=== PATIENT | male | born 1960 | race Caucasian/White ===

== ENCOUNTER → 2019-07-11 | Day surgery (SDC) | payer BC ==
[~2019-07-11] MED LIST: IV RINGERS,LACTATED 1000ML 1,000 ML IV SCH; LIDOCAINE 2% PF 5 ML VIAL. ONE; PROPOFOL 20 ML IV ONE; PROPOFOL 80 ML IV ONE
[2019-07-11 17:15] VITALS: BP 158/91
--- NOTE | 2019-07-13 16:06 | PATHOLOGY ---
[facility] Accession Number: [id number] . 01 Material submitted: . PART A: stomach - GASTRIC CARDIA POLYP BX PART B: sigmoid colon - SIGMOID POLYPS PART C: colon - TRANSVERSE COLON POLYP. Modifiers: transverse PART D: rectosigmoid junction - RECTO-SIGMOID JUNCTION MASS BX . 01 Clinical history: . Weight loss, GI bleed, heartburn . 02 Diagnosis: A. Gastric biopsies, gastric cardia polyp: - Hyperplastic polyp, showing mild acute and chronic inflammation. . B. Colon biopsies, sigmoid polyps: - Tubular adenomas (2). . C. Colon biopsy, transverse colon polyp: - Pedunculated tubular adenoma. . D. Colon biopsies, rectosigmoid junction mass: - Adenocarcinoma, moderately-well differentiated, with mucinous features. . (JPM:[facility]; 07/13/2019) [facility] 07/13/2019 1523 Local . 02 Comment: Sections of the gastric cardia biopsy reveal a hyperplastic polyp showing focal mild acute and chronic inflammation. There are no adenomatous changes or evidence of malignancy. . Sections of the sigmoid colon biopsy reveal two tubular adenomas showing no high grade dysplasia or evidence of malignancy. There is also a segment of mucinous material containing small clusters of malignant cells having features of mucinous adenocarcinoma. I believe this most likely represents contamination from the rectosigmoid junction mass. . Sections of the transverse colon biopsy reveal a pedunculated tubular adenoma. There is no high grade dysplasia or evidence of malignancy. . Sections of the rectosigmoid junction mass biopsy focally reveal malignant glands infiltrating a reactive desmoplastic stroma. The malignant glands are focally associated with mucin lakes and there are focal tumor cells floating within mucin lakes. 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 . The case is also examined by Dr. Mack Castro, who concurs with the diagnoses. . (JPM:mml; 07/13/2019) . 02 Electronically signed: . Matthew Garrido MD, Pathologist NPI- [id number] . 01 Gross description: . A. Received in formalin labeled "Martin [place], gastric cardia polyp BX," are 4 segments of nesbitt soft tissue measuring 0.9 x 0.9 x 0.2 cm in aggregate dimensions and ranging from 0.3 to 0.5 cm in maximum dimension. The specimen is submitted entirely in cassette A1. . B. Received in formalin labeled "Martin [place], sigmoid polyps," is a 0.5 x 0.4 x 0.3 cm polypoid piece of nesbitt soft tissue. The margin is inked and the tissue is sectioned perpendicular to the margin and submitted entirely in cassette B1. Additionally received in the same container are 4 segments of nesbitt soft tissue measuring 0.9 x 0.7 x 0.2 cm in aggregate dimensions and ranging from 0.3 to 0.5 cm in maximum dimensions. The specimen is submitted entirely in cassette B2. . C. Received in formalin labeled "Martin Cord[place], transverse colon polyp," is a 1.2 x 1.0 x 0.9 cm polypoid piece of nesbitt soft tissue. The margin is inked and the tissue is sectioned perpendicular to the margin and submitted entirely in cassette C1 and C2. . D. Received in formalin labeled "Martin Cord[place], recto-sigmoid junction mass BX," are multiple segments of nesbitt soft tissue measuring 1.5 x 0.5 x 0.1 cm in aggregate dimensions. The specimen is filtered and entirely submitted in cassette D1. (TSD; 07/12/2019) TOB/TOB 07/12/2019 1823 Local . 02 Pathologist provided ICD-10: K63.5, K29.00, K29.50, D12.5, D12.3, C19 . 02 CPT . 128377, 595655, 896683, 336902 Specimen Comment: A courtesy copy of this report has been sent to [phone], [phone] Specimen Comment: [id number] Specimen Comment: Report sent to / DR PANTOJA Performed at: 01 [facility] [address], [place], [place] [id number] MD Desmond Abbasi MD Phone: [phone] Performed at: [address] [id number] MD Matthew Garrido MD Phone: [phone]
== END | disposition home or self-care (01) ==
LOC: ENDOS 15:14
PROVIDERS: ATTEND Internal Medicine Gastroenterology
DX: K62.5 Hemorrhage of anus and rectum (principal); C19 Malignant neoplasm of rectosigmoid junction; D12.5 Benign neoplasm of sigmoid colon; D12.3 Benign neoplasm of transverse colon; K64.0 First degree hemorrhoids; K57.30 Diverticulosis of large intestine without perforation or abscess without bleeding; K31.7 Polyp of stomach and duodenum; R63.4 Abnormal weight loss; I10 Essential (primary) hypertension; Z98.890 Other specified postprocedural states
CPT/HCPCS: 43239; 43450; 45380; 45385; 88305; J2001; J2704

== ENCOUNTER → 2019-07-17 | Outpatient (CLI) | payer BC ==
[2019-07-11 17:15] VITALS: BP 158/91
[~2019-07-17] MED LIST changes: +IOHEXOL 240 MG/ML 50ML VIAL. PO ONE; +IOHEXOL 300 MG/ML 100ML VIAL. IV ONE; -IV RINGERS,LACTATED 1000ML 1,000 ML IV SCH; -LIDOCAINE 2% PF 5 ML VIAL. ONE; -PROPOFOL 20 ML IV ONE; -PROPOFOL 80 ML IV ONE
--- NOTE | 2019-07-17 15:20 | KCIC ---
EXAM: CT OF THE CHEST, ABDOMEN AND PELVIS WITH CONTRAST. HISTORY: Colon mass, weight loss, hematochezia. TECHNIQUE: Computed tomography of the chest, abdomen and pelvis was performed after the intravenous administration of iodinated contrast. One or more of the following individualized dose reduction techniques were utilized for this examination: 1. Automated exposure control. 2. Adjustment of the mA and/or kV according to patient size. 3. Use of iterative reconstruction technique. COMPARISON: None. FINDINGS: Bone windows reveal no suspicious lesions. There are no pathologically enlarged mediastinal or axillary lymph nodes. There is no pleural or pericardial effusion. The heart is not enlarged. Lung windows reveal no suspicious nodules. There is mild atelectasis in the bases. Multiple hypoattenuating hepatic lesions are consistent with metastatic disease. The largest in the right hepatic lobe inferiorly measures 8.2 x 5.5 cm. The largest in the left lobe in segment 2 measures 4.3 x 3.6 cm. Several other smaller lesions are also present. There is a bulky circumferential mass within the rectosigmoid junction. Direct invasion of the surrounding perirectal fat is suspected, versus extramural venous invasion. There are no pathologically enlarged lymph nodes more superiorly. The bladder is decompressed but there is moderate wall thickening. The appendix is not inflamed. There is no small bowel obstruction. The spleen, adrenal glands, gallbladder, kidneys and pancreas are unremarkable. IMPRESSION: 1. Bulky circumferential mass at the rectosigmoid junction consistent with adenocarcinoma. Direct invasion of the mesorectal fat is suspected, versus extramural venous invasion. 2. Bulky hepatic metastatic disease as above. 3. Diffuse bladder wall thickening indicates chronic outlet obstruction or inflammation. Electronically signed by: Miguel Celis MD (07/17/2019 3:17 PM) [facility]
== END | disposition home or self-care (01) ==
LOC: KCIC CT 13:37
PROVIDERS: ATTEND Internal Medicine Gastroenterology
DX: C78.7 Secondary malignant neoplasm of liver and intrahepatic bile duct (principal); K31.7 Polyp of stomach and duodenum; K63.89 Other specified diseases of intestine; J98.11 Atelectasis; K76.9 Liver disease, unspecified
CPT/HCPCS: 71260; 74177; Q9966; Q9967

== ENCOUNTER → 2019-08-04 | Outpatient (CLI) | payer BC ==
[2019-07-11 17:15] VITALS: BP 158/91
--- NOTE | 2019-08-04 13:20 | NUR ---
Ostomy Care Pt seen for pre-op Ostomy teaching and stoma marking, per Dr. Ponce's request. Pt's abdomen assessed in laying, sitting, standing and forward bending positions, for folds, wrinkles and scars. LLQ cleaned with alcohol swab, surgical marking applied to appropriate area free of folds, wrinkles and scars, using surgical marker, then covered with tegaderm, as pt's surgery isn't scheduled until next week. Provided limited education on [facility] ostomy program and ostomy teaching at this time, per pt's wishes, as pt stated "Dr. Ponce said I wouldn't be getting one of those". Pt's interjected and stated Dr. Ponce said he might end up with a colostomy. Offered to follow up and continue with teaching next week after surgery, if necessary, pt agreeable.
[2019-08-04 14:04] LABS: BASO # 0.1 x10^3/uL (0.0-0.2); BASO % 1 % (0-3); EOS # 0.2 x10^3/uL (0.0-0.7); EOS % 2 % (0-3); HEMATOCRIT 40.2 % (39.0-53.0); HEMOGLOBIN 13.3 g/dL (13.0-17.5); LYMPH # 0.9 x10^3/uL (1.0-4.8); LYMPH % 12 % (24-48); MEAN CORPUSCULAR HEMOGLOBIN 30 pg (25-35); MEAN CORPUSCULAR HGB CONC 33 g/dL (31-37); MEAN CORPUSCULAR VOLUME 91 fL (79-100); MONO # 0.8 x10^3/uL (0.0-1.1); MONO % 10 % (0-9); NEUT # 6.1 x10^3/uL (1.8-7.7); NEUT % 75 % (31-73); PLATELET COUNT 287 x10^3/uL (140-400); RED BLOOD COUNT 4.44 x10^6/uL (4.30-5.70); WHITE BLOOD COUNT 8.1 x10^3/uL (4.0-11.0)
[2019-08-04 14:24] LABS: ALBUMIN 2.8 g/dL (3.4-5.0); CALCIUM 9.1 mg/dL (8.5-10.1); CREATININE 0.9 mg/dL (0.7-1.3); POTASSIUM 3.4 mmol/L (3.5-5.1)
--- NOTE | 2019-08-07 08:04 | NUR ---
Pre testing lab results faxed to Dr. Ponce.
== END | disposition home or self-care (01) ==
LOC: SURGPAT 12:50
PROVIDERS: ATTEND Surgery
DX: Z01.818 Encounter for other preprocedural examination (principal)
CPT/HCPCS: 36415; 80048; 82040; 85025; 85610; 85730

== ENCOUNTER 2019-08-09 11:03 | Inpatient (IN) | payer BC ==
[~2019-08-09] VITALS: Ht 177.8 cm; Wt 70.0 kg
[2019-08-09] VITALS (9 sets, daily range): BP systolic 119–154; BP diastolic 74–92
[~2019-08-09 11:03] MED LIST changes: +HYDROmorphone 2 MG/ML VIAL IV PRN; -IOHEXOL 240 MG/ML 50ML VIAL. PO ONE; -IOHEXOL 300 MG/ML 100ML VIAL. IV ONE; +IV RINGERS,LACTATED 1000ML 1,000 ML IV SCH; +LIDOCAINE 1% PF 2 ML VIAL. ID PRN; +MORPHINE SULFATE 2 MG/ML VIAL. IV PRN; +ONDANSETRON PF 4 MG/2 ML VIAL. IV PRN; +PROCHLORPERAZINE 10 MG/2 ML VIAL. IV PRN; +cefOXitin SODIUM IV Push 2 GM VIAL. IVP PRN; +fentaNYL PF VIAL 100 MCG/2 ML VIAL IV PRN
[2019-08-09] MEDS ORDERED: BUPIVACAINE-EPI 0.5%-1:200000 MPF 30 ML VIAL. ONE (13:03)
[2019-08-09] MEDS ORDERED: PROPOFOL 20 ML IV ONE (13:25)
[2019-08-09] MEDS ORDERED: DEXAMETHASONE SOD PHOS 4 MG/ML VIAL ONE (13:26)
[2019-08-09] MEDS ORDERED: ONDANSETRON PF 4 MG/2 ML VIAL. ONE (13:26)
[2019-08-09] MEDS ORDERED: LIDOCAINE 2% PF 5 ML VIAL. ONE (13:26)
[2019-08-09] MEDS ORDERED: ROCURONIUM 50 MG/5 ML VIAL. ONE (13:26)
[2019-08-09] MEDS ORDERED: GLYCOPYRROLATE 1 MG/5 ML VIAL. ONE (13:26)
[2019-08-09] MEDS ORDERED: NEOSTIGMINE METHYLSULFATE 5 MG/5 ML SYRINGE. ONE (13:26)
[2019-08-09] MEDS ORDERED: SEVOFLURANE 61 TO 120 MINUTES. IH ONE (13:26)
[2019-08-09] MEDS ORDERED: KETOROLAC 30 MG/ML VIAL. ONE (13:28)
--- NOTE | 2019-08-09 13:46 | PDOC ---
SURGICAL PROGRESS NOTE Subjective Pre-Op Note 58 yo M with metastatic, obstructing colon cancer TO OR for laparoscopic versus open sigmoid colostomy. R/R/B/A d/w pt and pt's supportive family. Office note H&P reviewed and unchanged. Vital Signs Vital Signs Date Time Temp Pulse Resp B/P (MAP) Pulse Ox O2 Delivery O2 Flow Rate FiO2 08/09/19 11:51 97.3 93 18 172/105 99 Room Air 97.3 DHARA LAKE MD Aug 09, 2019 13:46
[2019-08-09] MEDS ORDERED: fentaNYL PF VIAL 100 MCG/2 ML VIAL ONE ×3 (14:01→15:37)
[2019-08-09] MEDS: IV NORMAL SALINE 1000ML BAG 1,000 ML IV SCH (14:29)
[2019-08-09] MEDS: IV RINGERS,LACTATED 1000ML 1,000 ML IV SCH ×2 (14:29→23:00)
[2019-08-09] MEDS ORDERED: MORPHINE SULFATE 2 MG/ML VIAL. IV PRN (14:30)
[2019-08-09] MEDS ORDERED: KETOROLAC 30 MG/ML VIAL. IV PRN (14:30)
[2019-08-09] MEDS ORDERED: NALOXONE 0.4 MG/ML VIAL. IV PRN (14:30)
[2019-08-09] MEDS ORDERED: 0.9 % SODIUM CHLORIDE 10 ML DISP.SYRIN. IV PRN (14:30)
[2019-08-09] MEDS ORDERED: ONDANSETRON PF 4 MG/2 ML VIAL. IVP PRN (14:30)
--- NOTE | 2019-08-09 14:40 | PDOC4 ---
OPERATIVE NOTE Date: Date: Aug 09, 2019 Pre-Op Diagnosis: Metastatic, obstructing colon cancer Post-Op Diagnosis: same Procedure Performed: laparoscopic colostomy placement Surgeon: Victoriano Lake Anesthesia Type: GETA plus local Blood Loss: 25 Specimans Obtained: none Findings: multiple liver metastasis, distended, mobile sigmoid colon, involution of sigmoid colon going into pelvis (obstructing, locally invasive disease) Complications: none Operative Note: After obtaining informed consent, patient was taken to OR, induced under GETA and prepped in the usual fashion. 5 mm port placed RLQ under laparoscopic guidance. Abdominal cavity was explored and noted as above. 5 mm port placed LLQ at colostomy marked site. Sigmoid colon grasped, site excised with cautery, through rectus muscle with cruciate incision. Sigmoid colon eviscerated and ostomy bridge placed. Laparoscopic exploration demonstrates proper alignment and not obvious bleeding. Port removed without bleeding. Skin repaired with 4 0 monocryl. Dressing placed. Colostomy matured with 2 0 chromic over bridge. Colostomy noted to be viable and patent to level of fascia. Colostomy device placed. Patient tolerated procedure well and sent to PACU in stable condition. All c ounts correct. Wound class is 4, dirty. DHARA LAKE MD Aug 09, 2019 14:40
[2019-08-09] MEDS ORDERED: BUPIVACAINE MPF 0.5% 30 ML VIAL. ONE (14:45)
[2019-08-09] MEDS ORDERED: PROCHLORPERAZINE 10 MG/2 ML VIAL. ONE (14:45)
[2019-08-09] MEDS ORDERED: DEXAMETHASONE SOD PHOS 20 MG/5 ML VIAL. ONE (14:45)
[2019-08-09] MEDS ORDERED: EPINEPHrine 1 MG/ML VIAL ONE (14:47)
[2019-08-09] MEDS ORDERED: hydrALAZINE 20 MG/ML VIAL. ONE (14:49)
[2019-08-09] MEDS ORDERED: hydrALAZINE 20 MG/ML VIAL. IVP ONE (15:00)
[2019-08-09] MEDS ORDERED: fentaNYL PF VIAL 100 MCG/2 ML VIAL IVP ONE (15:00)
[2019-08-09] MEDS: hydrALAZINE 10 MG TABLET PO SCH (15:09)
[2019-08-09] MEDS: DOCUSATE SODIUM 100 MG CAPSULE. PO SCH (21:18)
[2019-08-10 03:00] VITALS: BP 139/89
[2019-08-10 04:04] LABS: BASO # 0.1 x10^3/uL (0.0-0.2); BASO % 1 % (0-3); EOS % 0 % (0-3); HEMATOCRIT 38.6 % (39.0-53.0); HEMOGLOBIN 12.7 g/dL (13.0-17.5); LYMPH # 0.6 x10^3/uL (1.0-4.8); LYMPH % 5 % (24-48); MEAN CORPUSCULAR HEMOGLOBIN 30 pg (25-35); MEAN CORPUSCULAR HGB CONC 33 g/dL (31-37); MEAN CORPUSCULAR VOLUME 90 fL (79-100); MONO # 0.7 x10^3/uL (0.0-1.1); MONO % 7 % (0-9); NEUT # 9.6 x10^3/uL (1.8-7.7); NEUT % 88 % (31-73); PLATELET COUNT 295 x10^3/uL (140-400); RED BLOOD COUNT 4.29 x10^6/uL (4.30-5.70); RED CELL DISTRIBUTION WIDTH 13.9 % (11.5-14.5)
[2019-08-10 07:15] VITALS: BP 161/85
--- NOTE | 2019-08-10 08:05 | NUR ---
Pt. unable to urinate throughout the night. Pt. educated on the need to urinate. Bladder scanned at >1000. Pt. ambulating independently in hallway, stated he would attempt urination.
--- NOTE | 2019-08-10 08:26 | NUR ---
Pt. able to urinate 350cc independently.
[2019-08-10] MEDS: DOCUSATE SODIUM 100 MG CAPSULE. PO SCH ×2 (08:47→21:03)
[2019-08-10] MEDS: hydrALAZINE 10 MG TABLET PO SCH ×3 (08:47→21:03)
[2019-08-10 09:19] LABS: % ATYL 1 % (0-0); % LYMPHS 3 % (24-48); % MONOS 4 % (0-10); % SEGS 92 % (35-66); PLT ESTIMATE ADEQUATE (ADEQUATE)
[2019-08-10] MEDS: IV RINGERS,LACTATED 1000ML 1,000 ML IV SCH (10:29)
[2019-08-10 11:09] VITALS: BP 134/75
--- NOTE | 2019-08-10 11:12 | NUR ---
FAHAD Steen in to see pt. Notified of pt's urinary retention this am and pt able to urinate independently therafter. No verbal orders received.
--- NOTE | 2019-08-10 11:28 | PDOC ---
SURGICAL PROGRESS NOTE Subjective no complaints urinating now pain managed tolerating diet Vital Signs Vital Signs Date Time Temp Pulse Resp B/P (MAP) Pulse Ox O2 Delivery O2 Flow Rate FiO2 08/10/19 11:09 98.2 75 20 134/75 (94) 98 Room Air 98.2 08/09/19 15:55 10.0 I&O Intake and Output 08/10/19 06:59 Intake Total 3000 ml Output Total 220 ml Balance 2780 ml Intake Oral 700 ml IV Total 2300 ml Output Urine Total 200 ml Estimated Blood Loss 20 ml # Voids 2 General: Alert, Oriented X3, Cooperative Abdomen: Soft, Other (stoma pink) Labs Laboratory Tests Test 08/10/19 03:50 White Blood Count 11.0 x10^3/uL (4.0-11.0) Red Blood Count 4.29 x10^6/uL (4.30-5.70) Hemoglobin 12.7 g/dL (13.0-17.5) Hematocrit 38.6 % (39.0-53.0) Mean Corpuscular Volume 90 fL (79-100) Mean Corpuscular Hemoglobin 30 pg (25-35) Mean Corpuscular Hemoglobin Concent 33 g/dL (31-37) Red Cell Distribution Width 13.9 % (11.5-14.5) Platelet Count 295 x10^3/uL (140-400) Neutrophils (%) (Auto) 88 % (31-73) Lymphocytes (%) (Auto) 5 % (24-48) Monocytes (%) (Auto) 7 % (0-9) Eosinophils (%) (Auto) 0 % (0-3) Basophils (%) (Auto) 1 % (0-3) Neutrophils # (Auto) 9.6 x10^3/uL (1.8-7.7) Lymphocytes # (Auto) 0.6 x10^3/uL (1.0-4.8) Monocytes # (Auto) 0.7 x10^3/uL (0.0-1.1) Eosinophils # (Auto) 0.0 x10^3/uL (0.0-0.7) Basophils # (Auto) 0.1 x10^3/uL (0.0-0.2) Segmented Neutrophils % 92 % (35-66) Lymphocytes % 3 % (24-48) Atypical Lymphocytes % (Manual) 1 % (0-0) Monocytes % 4 % (0-10) Platelet Estimate Adequate (ADEQUATE) Laboratory Tests Test 08/10/19 03:50 White Blood Count 11.0 x10^3/uL (4.0-11.0) Red Blood Count 4.29 x10^6/uL (4.30-5.70) Hemoglobin 12.7 g/dL (13.0-17.5) Hematocrit 38.6 % (39.0-53.0) Mean Corpuscular Volume 90 fL (79-100) Mean Corpuscular Hemoglobin 30 pg (25-35) Mean Corpuscular Hemoglobin Concent 33 g/dL (31-37) Red Cell Distribution Width 13.9 % (11.5-14.5) Platelet Count 295 x10^3/uL (140-400) Neutrophils (%) (Auto) 88 % (31-73) Lymphocytes (%) (Auto) 5 % (24-48) Monocytes (%) (Auto) 7 % (0-9) Eosinophils (%) (Auto) 0 % (0-3) Basophils (%) (Auto) 1 % (0-3) Neutrophils # (Auto) 9.6 x10^3/uL (1.8-7.7) Lymphocytes # (Auto) 0.6 x10^3/uL (1.0-4.8) Monocytes # (Auto) 0.7 x10^3/uL (0.0-1.1) Eosinophils # (Auto) 0.0 x10^3/uL (0.0-0.7) Basophils # (Auto) 0.1 x10^3/uL (0.0-0.2) Segmented Neutrophils % 92 % (35-66) Lymphocytes % 3 % (24-48) Atypical Lymphocytes % (Manual) 1 % (0-0) Monocytes % 4 % (0-10) Platelet Estimate Adequate (ADEQUATE) Assessment/Plan will ask ostomy nurse to see, social work for HH at discharge KATHIA AMADOR APRN Aug 10, 2019 11:28
--- NOTE | 2019-08-10 13:20 | NUR ---
Ostomy Care Pt seen to set up new ostomy teaching for tomorrow. Upon assessment of stoma and pouch, noted barrier to be lifted and stool leaking out, so appliance changed at this time. Pt has a large, edematous stoma, measuring 51 mm wide, red in color, with bridge in place, sutures intact, small amount of peristomal separation from [id number], measuring 3 mm depth and approx.7 mm out from stoma. Periwound skin pink and intact. Area of peristomal separation filled with durable collagen (Bibiana) and stoma powder, 2 piece appliance cut to fit, and applied over bridge and stoma, pt tolerated well. Pt and were educated on skin assessment, appliance change, dietary, etc. Will provide more education tomorrow, during teaching at 1:00, POC discussed with PETE Ray. Stoma size and appearance discussed with Dr. Ponce, who is aware of edema, no new orders received, but stated bridge can possibly come out tomorrow during teaching, will f/u with him prior to removal. Pt enrolled in [employer] program at this time, supplies ordered, along with Colostomy starter kit.
[2019-08-10] MEDS: IV NORMAL SALINE 1000ML BAG 1,000 ML IV SCH (14:29)
[2019-08-10 15:04] VITALS: BP 144/81
--- NOTE | 2019-08-10 15:07 | NUR ---
SS following for discharge planning. SS reviewed pt chart. Pt is from home with spouse and is currently on room air. Pt agreeable to home healthcare at discharge. Nurse navigator met with pt to discuss home healthcare. Pt agreeable to [facility], ; fax [phone]. SS will continue to follow for discharge planning.
[2019-08-10] MEDS: HYDROcodone/APAP 5/325MG 1 TAB TABLET PO PRN (16:11)
[2019-08-10 19:00] VITALS: BP 131/78
[2019-08-10 23:54] VITALS: BP 133/86
--- NOTE | 2019-08-11 02:25 | CONS ---
DATE OF CONSULTATION: 08/10/2019 MEDICAL ONCOLOGY CONSULTATION REPORT REQUESTING PHYSICIAN: Ahsan Ponce MD REASON FOR CONSULTATION: Colon cancer with metastasis to the liver. HISTORY OF PRESENT ILLNESS: The patient is a 58-year-old gentleman who reports having had poor appetite, weight loss, blood in the stools and constipation since 02/2019. He was evaluated by Dr. Yusef Sifuentes and he underwent a colonoscopy on 07/11/2019, which revealed mass in the rectosigmoid junction and biopsies revealed adenocarcinoma, moderately well differentiated with mucinous features. CT scan of the chest, abdomen and pelvis on 07/17/2019 revealed bulky circumferential mass at the rectosigmoid junction consistent with adenocarcinoma. Direct invasion of the mesorectal fat is suspected versus extramural venous invasion. Bulky hepatic metastatic disease is noted with the largest right hepatic lobe mass measuring 8.2 x 5.5 cm and the largest left lobe mass in segment 2 measures 4.3 x 3.6 cm. Several other smaller lesions are also present. Diffuse bladder wall thickening indicates chronic outlet obstruction or inflammation. He denies any abdominal pain, nausea or vomiting. No fevers, chills or night sweats. PAST MEDICAL HISTORY: History of hypertension, constipation, history of urinary retention. SOCIAL HISTORY: He has a history of cigarette smoking and history of alcohol use, 5-6 beers every night. FAMILY HISTORY: Negative for colon cancer. REVIEW OF SYSTEMS: A 12-point review of system was performed. Pertinent positives are mentioned in the history of present illness. Rest of the system review is negative. PHYSICAL EXAMINATION: GENERAL APPEARANCE: The patient is a 58-year-old gentleman who is in no acute cardiorespiratory distress. VITAL SIGNS: Blood pressure 144/81, temperature 97.9. HEAD: Atraumatic, normocephalic. EYES: No icterus. NECK: Supple. CHEST: Bilaterally symmetrical. HEART: S1, S2 normal. ABDOMEN: Soft, nontender. He has a colostomy in place in the left lower quadrant. CENTRAL NERVOUS SYSTEM: No focal deficits. LYMPHATICS: No lymphadenopathy. SKIN: No rashes. PSYCHOLOGIC: Mood and affect are appropriate. LABORATORY DATA: WBC 11, hemoglobin 12.7, platelet count 295. IMPRESSION AND PLAN: 1. 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 Biopsies revealed moderately well differentiated adenocarcinoma with mucinous features. CT scan of the chest, abdomen and pelvis on 07/17/2019 revealed a bulky circumferential mass at the rectosigmoid junction consistent with adenocarcinoma. Direct invasion of the mesorectal fat is suspected versus extramural invasion. Bulky hepatic metastatic disease is noted involving both the lobes of the liver. He underwent laparoscopic colostomy placement on 08/09/[address] Ahsan Ponce. I discussed in detail with the patient regarding the diagnosis, treatment options and prognosis of adenocarcinoma of the rectosigmoid junction. Since he has a history of bleeding and constipation, he would benefit from concurrent chemoradiation. However, since he has distant metastatic disease, I would start with palliative chemotherapy first for at least 4-6 cycles. Then if he does not have any evidence of disease progression then I would proceed with concurrent chemoradiation therapy. I will also discuss with Dr. Ponce regarding Port-A-Cath placement. Since he just had a colostomy on 08/09/2019, I would wait at least 2 weeks before initiating chemotherapy. I discussed in detail with the patient and his son and the patient's and all their questions were answered. 2. Anemia secondary to malignancy. Continue to monitor hemoglobin. JAROCHO CUNNINGHAM MD DR: AZRA/thompson JOB#: [id number] / [id number]
[2019-08-11 03:24] VITALS: BP 157/87
[2019-08-11] MEDS: HYDROcodone/APAP 5/325MG 1 TAB TABLET PO PRN (03:49)
[2019-08-11 07:00] VITALS: BP 155/100
--- NOTE | 2019-08-11 09:13 | PDOC ---
PROGRESS NOTES Subjective Subjective HPI - f/u of Adenocarcinoma of the rectosigmoid junction ROS - no CP Objective Objective Vital Signs Date Time Temp Pulse Resp B/P (MAP) Pulse Ox O2 Delivery O2 Flow Rate FiO2 08/11/19 07:00 97.9 63 16 155/100 (118) 97 Room Air 97.9 08/09/19 15:55 10.0 Intake and Output 08/11/19 07:00 Intake Total 1160 ml Output Total 3100 ml Balance -1940 ml Intake Oral 1160 ml Output Urine Total 3100 ml Physical Exam Heart: Normal S1, Normal S2 General: Alert, Oriented X3 Lungs: Clear to auscultation Neuro: Normal speech Psych/Mental Status: Mental status NL Assessment Assessment IMPRESSION AND PLAN: 1. 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 Biopsies revealed moderately well differentiated adenocarcinoma with mucinous features. CT scan of the chest, abdomen and pelvis on 07/17/2019 revealed a bulky circumferential mass at the rectosigmoid junction consistent with adenocarcinoma. Direct invasion of the mesorectal fat is suspected versus extramural invasion. Bulky hepatic metastatic disease is noted involving both the lobes of the liver. He underwent laparoscopic colostomy placement on 08/09/[address] Ahsan Ponce. I discussed in detail with the patient regarding the diagnosis, treatment options and prognosis of adenocarcinoma of the rectosigmoid junction. Since he has a history of bleeding and constipation, he would benefit from concurrent chemoradiation. However, since he has distant metastatic disease, I would start with palliative chemotherapy first for at least 4-6 cycles. Then if he does not have any evidence of disease progression then I would proceed with concurrent chemoradiation therapy. I will also discuss with Dr. Ponce regarding Port-A-Cath placement. Since he just had a colostomy on 08/09/2019, I would wait at least 2 weeks before initiating chemotherapy. I discussed in detail with the patient and his son and the patient's and all their questions were answered. I will consult Rad Onc as outpt. 2. Anemia secondary to malignancy. Continue to monitor hemoglobin. Comment Review of Relevant I have reviewed the following items amie (where applicable) has been applied. Labs Laboratory Tests Test 08/10/19 03:50 White Blood Count 11.0 x10^3/uL (4.0-11.0) Red Blood Count 4.29 x10^6/uL (4.30-5.70) Hemoglobin 12.7 g/dL (13.0-17.5) Hematocrit 38.6 % (39.0-53.0) Mean Corpuscular Volume 90 fL (79-100) Mean Corpuscular Hemoglobin 30 pg (25-35) Mean Corpuscular Hemoglobin Concent 33 g/dL (31-37) Red Cell Distribution Width 13.9 % (11.5-14.5) Platelet Count 295 x10^3/uL (140-400) Neutrophils (%) (Auto) 88 % (31-73) Lymphocytes (%) (Auto) 5 % (24-48) Monocytes (%) (Auto) 7 % (0-9) Eosinophils (%) (Auto) 0 % (0-3) Basophils (%) (Auto) 1 % (0-3) Neutrophils # (Auto) 9.6 x10^3/uL (1.8-7.7) Lymphocytes # (Auto) 0.6 x10^3/uL (1.0-4.8) Monocytes # (Auto) 0.7 x10^3/uL (0.0-1.1) Eosinophils # (Auto) 0.0 x10^3/uL (0.0-0.7) Basophils # (Auto) 0.1 x10^3/uL (0.0-0.2) Segmented Neutrophils % 92 % (35-66) Lymphocytes % 3 % (24-48) Atypical Lymphocytes % (Manual) 1 % (0-0) Monocytes % 4 % (0-10) Platelet Estimate Adequate (ADEQUATE) Medications Current Medications Ondansetron HCl (Zofran) 4 mg PRN Q6HRS PRN IV NAUSEA/VOMITING; Start 08/09/19 at 07:00; Stop 08/10/19 at 06:59; Status DC Fentanyl Citrate (Fentanyl 2ml Vial) 25 mcg PRN Q5MIN PRN IV MILD PAIN 1-3; Start 08/09/19 at 07:00; Stop 08/10/19 at 06:59; Status DC Fentanyl Citrate (Fentanyl 2ml Vial) 50 mcg PRN Q5MIN PRN IV MODERATE TO SEVERE PAIN Last administered on 08/09/19at 15:39; Start 08/09/19 at 07:00; Stop 08/10/19 at 06:59; Status DC Morphine Sulfate (Morphine Sulfate) 1 mg PRN Q10MIN PRN IV SEVERE PAIN 7-10; Start 08/09/19 at 07:00; Stop 08/10/19 at 06:59; Status DC Ringer's Solution 1,000 ml @ 30 mls/hr Q24H IV Last administered on 08/09/19at 11:55; Start 08/09/19 at 07:00; Stop 08/09/19 at 18:59; Status DC Lidocaine HCl (Xylocaine-Mpf 1% 2ml Vial) 2 ml PRN 1X PRN ID PRIOR TO IV START; Start 08/09/19 at 07:00; Stop 08/10/19 at 06:59; Status DC Hydromorphone HCl (Dilaudid) 0.5 mg PRN Q10MIN PRN IV SEV PAIN, Second choice; Start 08/09/19 at 07:00; Stop 08/10/19 at 06:59; Status DC Prochlorperazine Edisylate (Compazine) 5 mg PACU PRN PRN IV NAUSEA, MRX1 Last administered on 08/09/19at 14:54; Start 08/09/19 at 07:00; Stop 08/10/19 at 06:59; Status DC Cefoxitin Sodium (Mefoxin) 2 gm 1X PREOP PRN IVP PRE-OP; Start 08/09/19 at 06:00; Stop 08/09/19 at 18:00; Status DC Bupivacaine HCl/ Epinephrine Bitart (Sensorcain-Epi 0.5%-1:917225 Mpf) 30 ml STK-MED ONCE .ROUTE Last administered on 08/09/19at 13:56; Start 08/09/19 at 13:03; Stop 08/09/19 at 13:03; Status DC Propofol 20 ml @ As Directed STK-MED ONCE IV ; Start 08/09/19 at 13:25; Stop 08/09/19 at 13:26; Status DC Lidocaine HCl (Lidocaine Pf 2% Vial) 5 ml STK-MED ONCE .ROUTE ; Start 08/09/19 at 13:26; Stop 08/09/19 at 13:26; Status DC Ondansetron HCl (Zofran) 4 mg STK-MED ONCE .ROUTE ; Start 08/09/19 at 13:26; Stop 08/09/19 at 13:26; Status DC Dexamethasone Sodium Phosphate (Decadron) 4 mg STK-MED ONCE .ROUTE ; Start 08/09/19 at 13:26; Stop 08/09/19 at 13:26; Status DC Sevoflurane (Ultane) 60 ml STK-MED ONCE IH ; Start 08/09/19 at 13:26; Stop 08/09/19 at 13:26; Status DC Rocuronium [place] (Zemuron) 50 mg STK-MED ONCE .ROUTE ; Start 08/09/19 at 13:26; Stop 08/09/19 at 13:26; Status DC Neostigmine [place] (Neostigmine Methylsulfate) 5 mg STK-MED ONCE .ROUTE ; Start 08/09/19 at 13:26; Stop 08/09/19 at 13:26; Status DC Glycopyrrolate (Robinul) 1 mg STK-MED ONCE .ROUTE ; Start 08/09/19 at 13:26; Stop 08/09/19 at 13:27; Status DC Ketorolac Tromethamine (Toradol 30mg Vial) 30 mg STK-MED ONCE .ROUTE ; Start 08/09/19 at 13:28; Stop 08/09/19 at 13:28; Status DC Fentanyl Citrate (Fentanyl 2ml Vial) 100 mcg STK-MED ONCE .ROUTE ; Start 08/09/19 at 14:01; Stop 08/09/19 at 14:01; Status DC Sodium Chloride (Normal Saline Flush) 3 ml QSHIFT PRN IV AFTER MEDS AND BLOOD DRAWS; Start 08/09/19 at 14:30 Ringer's Solution 1,000 ml @ 100 mls/hr Q10H IV Last administered on 08/09/19at 23:00; Start 08/09/19 at 14:29; Stop 08/10/19 at 14:33; Status DC Acetaminophen/ Hydrocodone Bitart (Lortab 5/325) 1 tab PRN Q4HRS PRN PO MILD PAIN 1-3 Last administered on 08/11/19at 03:49; Start 08/09/19 at 14:30 Ketorolac Tromethamine (Toradol 30mg Vial) 30 mg PRN Q6HRS PRN IV PAIN Last administered on 08/10/19at 06:06; Start 08/09/19 at 14:30; Stop 08/14/19 at 14:29 Naloxone HCl (Narcan) 0.4 mg PRN Q2MIN PRN IV SEE INSTRUCTIONS; Start 08/09/19 at 14:30 Sodium Chloride 1,000 ml @ 25 mls/hr Q24H IV ; Start 08/09/19 at 14:29 Morphine Sulfate (Morphine Sulfate) 1 mg PRN Q1HR PRN IV PAIN; Start 08/09/19 at 14:30 Docusate Sodium (Colace) 100 mg BID PO Last administered on 08/10/19at 21:03; Start 08/09/19 at 21:00 Ondansetron HCl (Zofran) 4 mg PRN Q6HRS PRN IVP NAUESA, 1ST CHOICE; Start 08/09/19 at 14:30 Fentanyl Citrate (Fentanyl 2ml Vial) 100 mcg STK-MED ONCE .ROUTE ; Start 08/09/19 at 14:42; Stop 08/09/19 at 14:42; Status DC Dexamethasone Sodium Phosphate (Decadron) 20 mg STK-MED ONCE .ROUTE ; Start 08/09/19 at 14:45; Stop 08/09/19 at 14:45; Status DC Bupivacaine HCl (Sensorcaine Mpf 0.5%) 30 ml STK-MED ONCE .ROUTE ; Start 08/09/19 at 14:45; Stop 08/09/19 at 14:45; Status DC Prochlorperazine Edisylate (Compazine) 10 mg STK-MED ONCE .ROUTE ; Start 08/09/19 at 14:45; Stop 08/09/19 at 14:46; Status DC Epinephrine HCl (Adrenalin) 1 mg STK-MED ONCE .ROUTE ; Start 08/09/19 at 14:47; Stop 08/09/19 at 14:47; Status DC Hydralazine HCl (Apresoline Inj) 20 mg STK-MED ONCE .ROUTE ; Start 08/09/19 at 14:49; Stop 08/09/19 at 14:49; Status DC Fentanyl Citrate (Fentanyl 2ml Vial) 100 mcg 1X ONCE IVP Last administered on 08/09/19at 14:54; Start 08/09/19 at 15:00; Stop 08/09/19 at 15:01; Status DC Hydralazine HCl (Apresoline) 10 mg TID PO Last administered on 08/10/19at 21:03; Start 08/09/19 at 21:00 Hydralazine HCl (Apresoline Inj) 10 mg 1X ONCE IVP Last administered on 08/09/19at 14:58; Start 08/09/19 at 15:00; Stop 08/09/19 at 15:01; Status DC Fentanyl Citrate (Fentanyl 2ml Vial) 100 mcg STK-MED ONCE .ROUTE ; Start 08/09/19 at 15:37; Stop 08/09/19 at 15:37; Status DC Active Scripts Active Reported No Known Medications Prior To Admisstion (Info) Each 1 Each 1X Vitals/I & O Vital Sign - Last 24 Hours 08/10/19 08/10/19 08/10/19 08/10/19 11:09 14:53 15:04 16:11 Temp 98.2 97.9 98.2 97.9 Pulse 75 65 65 Resp 20 18 B/P (MAP) 134/75 (94) 144/81 144/81 (102) Pulse Ox 98 99 O2 Delivery Room Air Room Air Room Air 08/10/19 08/10/19 08/10/19 08/10/19 17:29 19:00 20:00 21:03 Temp 98.6 98.6 Pulse 73 73 Resp 18 B/P (MAP) 131/78 (95) 131/78 Pulse Ox 96 O2 Delivery Room Air Room Air Room Air 08/10/19 08/11/19 08/11/19 08/11/19 23:54 03:24 03:49 04:49 Temp 98.6 98.6 98.6 98.6 Pulse 86 80 Resp 18 16 B/P (MAP) 133/86 (102) 157/87 (110) Pulse Ox 98 96 O2 Delivery Room Air Room Air Room Air Room Air 08/11/19 07:00 Temp 97.9 97.9 Pulse 63 Resp 16 B/P (MAP) 155/100 (118) Pulse Ox 97 O2 Delivery Room Air Intake and Output 08/10/19 08/10/19 08/11/19 15:00 23:00 07:00 Intake Total 640 ml 220 ml 300 ml Output Total 750 ml 525 ml 1825 ml Balance -110 ml -305 ml -1525 ml JAROCHO CUNNINGHAM MD Aug 11, 2019 09:13
--- NOTE | 2019-08-11 09:51 | PDOC ---
SURGICAL PROGRESS NOTE Subjective feels pretty well eating ok having some flatus in ostomy Vital Signs Vital Signs Date Time Temp Pulse Resp B/P (MAP) Pulse Ox O2 Delivery O2 Flow Rate FiO2 08/11/19 07:00 97.9 63 16 155/100 (118) 97 Room Air 97.9 I&O Intake and Output 08/11/19 07:00 Intake Total 1160 ml Output Total 3100 ml Balance -1940 ml Intake Oral 1160 ml Output Urine Total 3100 ml General: Alert, Oriented X3, Cooperative Abdomen: Soft, Other (stoma pink, fluid in stoma, bridge in place) Labs Laboratory Tests Test 08/10/19 03:50 White Blood Count 11.0 x10^3/uL (4.0-11.0) Red Blood Count 4.29 x10^6/uL (4.30-5.70) Hemoglobin 12.7 g/dL (13.0-17.5) Hematocrit 38.6 % (39.0-53.0) Mean Corpuscular Volume 90 fL (79-100) Mean Corpuscular Hemoglobin 30 pg (25-35) Mean Corpuscular Hemoglobin Concent 33 g/dL (31-37) Red Cell Distribution Width 13.9 % (11.5-14.5) Platelet Count 295 x10^3/uL (140-400) Neutrophils (%) (Auto) 88 % (31-73) Lymphocytes (%) (Auto) 5 % (24-48) Monocytes (%) (Auto) 7 % (0-9) Eosinophils (%) (Auto) 0 % (0-3) Basophils (%) (Auto) 1 % (0-3) Neutrophils # (Auto) 9.6 x10^3/uL (1.8-7.7) Lymphocytes # (Auto) 0.6 x10^3/uL (1.0-4.8) Monocytes # (Auto) 0.7 x10^3/uL (0.0-1.1) Eosinophils # (Auto) 0.0 x10^3/uL (0.0-0.7) Basophils # (Auto) 0.1 x10^3/uL (0.0-0.2) Segmented Neutrophils % 92 % (35-66) Lymphocytes % 3 % (24-48) Atypical Lymphocytes % (Manual) 1 % (0-0) Monocytes % 4 % (0-10) Platelet Estimate Adequate (ADEQUATE) Assessment/Plan s/p ostomy HH at [facility] d/w Cindy, will get port arranged KATHIA AMADOR APRN Aug 11, 2019 09:51
[2019-08-11] MEDS: DOCUSATE SODIUM 100 MG CAPSULE. PO SCH (10:07)
[2019-08-11] MEDS: hydrALAZINE 10 MG TABLET PO SCH ×2 (10:08→14:13)
[2019-08-11 11:00] VITALS: BP 152/93
[2019-08-11 14:13] VITALS: BP 152/93
[2019-08-11] MEDS ORDERED: DOCU-153 PO (14:20)
[2019-08-11] MEDS ORDERED: HYDR-2761 PO (14:20)
--- NOTE | 2019-08-11 14:24 | SNU/HH DC ---
DISCHARGE WITH HOME HEALTH DISCHARGE INFORMATION: Discharge Date: Aug 11, 2019 Final Diagnosis: Metastatic, obstructing colon cancer Condition on Discharge: Stable CODE STATUS: Code Status: Full HOME HEALTH: Face to Face: I certify this patient is under my care and that I, or a nurse practitioner or physician's assistant professor working with me, had a face to face encounter that meets the physician face to face encounter requirements with this patient on []. Medical Complications: Other (Metastatic, obstructing colon cancer, new ostomy ) Snf For: Other: (new ostomy ) RN For Eval/Treatment: Yes Home Health Aide For: Self-care Pt Meets Homebound Status: Fatigue w/ amb., Other: (new ostomy) POST DISCHARGE ORDERS: Activity Instructions for Disc: Progressive ambulation Weight Bearing Status after Di: As tolerated (no lifting > 20 lbs) DIET AFTER DISCHARGE: Regular Wound/Incision Care: May get incision wet Other wound/incision instructi: ostomy care FOLLOW-UP: Follow up with: Dr Ponce 1 -2 weeks, call to schedule [phone] Follow Up With: Dr White CERTIFICATION STATEMENT: Certification Statement: Certification Statement: Based on the above finding, I certify that this patient is confined to the home and needs intermittent custodial care, physical therapy and/or speech therapy, or continues to need occupational therapy.~ This patient is under my care, and I have initiated the establishment of the plan of care.~ This patient will be followed by myself or a community physician who will periodically review the plan of care. Home Meds Active Scripts Docusate Sodium (DOK) 100 Mg Capsule, 100 MG PO BID for constipation, #60 CAP 0 Refills Prov:KATHIA AMADOR APRN 08/11/19 Hydrocodone Bit/Acetaminophen (HYDROCODONE-APAP 5-325 ) 1 Tab Tablet, 1 TAB PO PRN Q4HRS PRN for MILD PAIN 1-3, #30 TAB 0 Refills Prov:KATHIA AMADOR APRN 08/11/19 Reported Medications Info (NO KNOWN MEDICATIONS PRIOR TO ADMISSTION) Each, 1 EACH MC 1X for none, EACH 07/11/19 KATHIA AMADOR DELIVERY AND INSTALLATION SUBCONTRACTOR Aug 11, 2019 14:24
--- NOTE | 2019-08-11 14:30 | NUR ---
Ostomy Care Pt seen for continued colostomy teaching and f/u for bridge removal. ANDRES Garcia at bedside, orders rec'd to remove bridge at this time. Pouch taken back, bridge removed without difficulty, pt tolerated well. Colostomy barrier intact, pouch reapplied, pt does have a small amount of brown liquid stool in pouch, lumen of stoma is centrally located, stoma is beefy red and edematous. Pt given contact information for [facility] wound clinic for any additional questions, extra colostomy appliances and supplies left with pt and to take home until RN and Cynthia supplies are delivered to pt.
--- NOTE | 2019-08-11 15:04 | NUR ---
Discharge Note: [facility] [address] [place] [address] Discharge instructions and discharge home medications reviewed with Patient and a copy given. All questions have been answered and understanding verbalized. The following instructions and handouts were given: Diet, activity, medication list and follow up instructions provided to patient. acetylene gas compressor completed ostomy teaching, dietary completed nutrition and soft diet information instructions with patient. Discontinued lines and drains: Peripheral IV discontinued and catheter intact. Patient discharged to Home w/services with Spouse via Ambulated
== END 2019-08-11 14:45 | disposition home health service (06) | DRG 330 ==
LOC: OPSVCIP 11:03 → 4 NORTH 15:44
PROVIDERS: ADMIT Surgery; ATTEND Surgery
PROC: 0D1N4Z4 Bypass Sigmoid Colon to Cutaneous, Percutaneous Endoscopic Approach (ICD-10-PCS; principal; 2019-08-09 13:00)
DX: C19 Malignant neoplasm of rectosigmoid junction (principal); C78.7 Secondary malignant neoplasm of liver and intrahepatic bile duct; D63.0 Anemia in neoplastic disease; I10 Essential (primary) hypertension; K59.00 Constipation, unspecified; Z87.891 Personal history of nicotine dependence
CPT/HCPCS: 36415; 85007; 85025; J0171; J0360; J0780; J1100; J1885; J2001; J2405; J2704; J2710; J3010; J3490; J7030; J7120; G0378

== ENCOUNTER 2019-08-22 10:22 | Day surgery (SDC) | payer BC ==
[~2019-08-22] VITALS: Ht 177.8 cm; Wt 71.0 kg
[~2019-08-22 10:22] MED LIST changes: +ACETAMINOPHEN 500 MG TABLET PO ONE; +DOCU-153 PO; +HYDR-2761 PO; -LIDOCAINE 1% PF 2 ML VIAL. ID PRN; +ceFAZolin SODIUM IV Push 1 GM VIAL. IVP SCH; -cefOXitin SODIUM IV Push 2 GM VIAL. IVP PRN
[2019-08-22] MEDS ORDERED: ACETAMINOPHEN 500 MG TABLET PO ONE (10:41)
[2019-08-22] MEDS ORDERED: HEPARIN PF 500 UNIT/5 ML DISP.SYRIN. ONE ×2 (10:56→10:57)
[2019-08-22] MEDS ORDERED: BUPIVACAINE MPF 0.25% 30 ML VIAL. ONE (10:57)
[2019-08-22] MEDS ORDERED: HEPARIN for IV BOLUS 10,000 UNIT/10 ML VIAL. ONE (10:57)
[2019-08-22] MEDS ORDERED: fentaNYL PF VIAL 100 MCG/2 ML VIAL ONE ×2 (11:11→12:54)
[2019-08-22] MEDS ORDERED: ONDANSETRON PF 4 MG/2 ML VIAL. ONE (11:12)
[2019-08-22] MEDS ORDERED: DEXAMETHASONE SOD PHOS 4 MG/ML VIAL ONE (11:12)
--- NOTE | 2019-08-22 11:19 | PDOC1 ---
History and Physical Date of Admission Date of Admission DATE: 08/22/19 TIME: 11:15 Identification/Chief Complaint Chief Complaint Needing long-term venous access for chemotherapy Source Source: Patient History of Present Illness History of Present Illness 58-year-old male with recent colon resection for colon cancer getting chemotherapy needing long-term venous access Past Medical History Cardiovascular: CAD, HTN Pulmonary: No pertinent hx GI: Other (colon cancer) Heme/Onc: No pertinent hx Hepatobiliary: No pertinent hx Psych: No pertinent hx Musculoskeletal: Other (bilateral knee pain) Rheumatologic: No pertinent hx ENT: No pertinent hx Renal/: No pertinent hx Endocrine: No pertinent hx Dermatology: No pertinent hx Past Surgical History Past Surgical History: Cholecystectomy, Colectomy Family History Family History: No Significant Social History Smoke: No ALCOHOL: social Drugs: None Current Medications Current Medications Current Medications Ondansetron HCl (Zofran) 4 mg PRN Q6HRS PRN IV NAUSEA/VOMITING; Start 08/22/19 at 07:00; Stop 08/23/19 at 06:59 Fentanyl Citrate (Fentanyl 2ml Vial) 25 mcg PRN Q5MIN PRN IV MILD PAIN 1-3; Start 08/22/19 at 07:00; Stop 08/23/19 at 06:59 Fentanyl Citrate (Fentanyl 2ml Vial) 50 mcg PRN Q5MIN PRN IV MODERATE TO SEVERE PAIN; Start 08/22/19 at 07:00; Stop 08/23/19 at 06:59 Morphine Sulfate (Morphine Sulfate) 1 mg PRN Q10MIN PRN IV SEVERE PAIN 7-10; Start 08/22/19 at 07:00; Stop 08/23/19 at 06:59 Ringer's Solution 1,000 ml @ 30 mls/hr Q24H IV Last administered on 08/22/19at 10:52; Start 08/22/19 at 07:00; Stop 08/22/19 at 18:59 Hydromorphone HCl (Dilaudid) 0.5 mg PRN Q10MIN PRN IV SEV PAIN, Second choice; Start 08/22/19 at 07:00; Stop 08/23/19 at 06:59 Prochlorperazine Edisylate (Compazine) 5 mg PACU PRN PRN IV NAUSEA, MRX1; Start 08/22/19 at 07:00; Stop 08/23/19 at 06:59 Cefazolin Sodium (Ancef) 1 gm Q8HRS IVP ; Start 08/22/19 at 06:00 Acetaminophen (Tylenol) 1,000 mg 1X ONCE PO Last administered on 08/22/19at 10:52; Start 08/22/19 at 06:00; Stop 08/22/19 at 06:01; Status DC Acetaminophen (Tylenol) 500 mg STK-MED ONCE PO ; Start 08/22/19 at 10:41; Stop 08/22/19 at 10:42; Status DC Heparin Sodium (Porcine) (Hep Lock Adult) 500 unit STK-MED ONCE .ROUTE ; Start 08/22/19 at 10:56; Stop 08/22/19 at 10:57; Status DC Heparin Sodium (Porcine) (Heparin Sodium) 10,000 unit STK-MED ONCE .ROUTE ; Start 08/22/19 at 10:57; Stop 08/22/19 at 10:57; Status DC Bupivacaine HCl (Sensorcaine Mpf 0.25%) 30 ml STK-MED ONCE .ROUTE ; Start 08/22/19 at 10:57; Stop 08/22/19 at 10:57; Status DC Heparin Sodium (Porcine) (Hep Lock Adult) 500 unit STK-MED ONCE .ROUTE ; Start 08/22/19 at 10:57; Stop 08/22/19 at 10:57; Status DC Fentanyl Citrate (Fentanyl 2ml Vial) 100 mcg STK-MED ONCE .ROUTE ; Start 08/22/19 at 11:11; Stop 08/22/19 at 11:12; Status DC Dexamethasone Sodium Phosphate (Decadron) 4 mg STK-MED ONCE .ROUTE ; Start 08/22/19 at 11:12; Stop 08/22/19 at 11:12; Status DC Ondansetron HCl (Zofran) 4 mg STK-MED ONCE .ROUTE ; Start 08/22/19 at 11:12; Stop 08/22/19 at 11:12; Status DC Active Scripts Active Dok (Docusate Sodium) 100 Mg Capsule 100 Mg PO BID Hydrocodone-Apap 5-325 (Hydrocodone Bit/Acetaminophen) 1 Tab Tablet 1 Tab PO PRN Q4HRS PRN Reported No Known Medications Prior To Admisstion (Info) Each 1 Each MC 1X Allergies Allergies: Coded Allergies: No Known Drug Allergies (Unverified , 3/3/20) Physical Exam General: Alert, Oriented X3, Cooperative, No acute distress HEENT: Atraumatic, PERRLA, EOMI Lungs: Clear to auscultation, Normal air movement Heart: S1S2, RRR, no murmurs Abdomen: Normal bowel sounds, Soft, No tenderness, Other (ostomy left lower quadrant) Rectal Exam: not examined Extremities: No edema Skin: No significant lesion Neuro: Normal speech Psych/Mental Status: Mental status NL Vitals Vitals Vital Signs Date Time Temp Pulse Resp B/P (MAP) Pulse Ox O2 Delivery O2 Flow Rate FiO2 08/22/19 10:49 98.2 89 20 97 98.2 08/22/19 10:46 180/108 VTE Prophylaxis Ordered VTE Prophylaxis Devices: Yes VTE Pharmacological Prophylaxi: Contraindicated Assessment/Plan Assessment/Plan Colon cancer scheduled for Port-A-Cath placement left side for venous access for chemotherapy LILIAN LOPEZ MD Aug 22, 2019 11:19
--- NOTE | 2019-08-22 12:27 | PDOC4 ---
Operative Note Operative Note Date: 08/22/2019 Preoperative diagnosis: Colon cancer Postoperative diagnosis: Same Procedure: Port-A-Cath placement Surgeon: Hamilton Specimen: None Dictation: Patient is a 58-year-old male who has colon cancer recently and her resection is going to have chemotherapy and is needing long-term venous access. Procedure Port-A-Cath placement was explained to the patient detail risk benefits were also discussed including bleeding infection and pneumothorax alternatives this procedure also discussed with the patient who seemed to understand and gave both verbal and written consent had the procedure performed. Patient was taken to the operating room placed in supine position general anesthesia was initiated once patient was sleep and LMA was in place his neck and chest were prepped and draped usual sterile fashion using ChloraPrep and area over the left deltopectoral groove was injected with quarter percent Marcaine with epinephrine incision was made with a 15 blade scalpel this carried down through the subcutaneous tissue using the cautery by hemostasis the cephalic vein could not be visualized within the deltopectoral groove and so the subclavian was accessed with a needle and Salinger wire technique was used to place the Port-A-Cath catheter. The port was sewn into place and a anterior chest pocket underneath the subcutaneous tissue with 3-0 Prolene port was then accessed there is good blood return was easily flushed and was locked with 2 mL of 1000 units per middle of heparin. Fluoroscopy was used to confirm placement of the Port-A-Cath and its catheter within the superior vena cava. Wound was then closed in 2 layers deep layer running 3-0 Vicryl's subcutaneous stitches and the skin was approximate for septic and a Monocryl Mastisol Steri-Strips and island dressing were applied. Patient was awakened and asked bated operating room taken to recovery in stable condition all sponge instrument needle counts listed as correct estimate blood loss 5 mL. LILIAN LOPEZ MD Aug 22, 2019 12:27
--- NOTE | 2019-08-22 12:29 | DISCH ---
DISCHARGE INSTRUCTIONS Condition on Discharge Condition on Discharge: Stable Activity After Discharge Activity Instructions for Disc: No restrictions Diet after Discharge Diet after Discharge: Regular Wound Incision Care Wound/Incision Care: May get incision wet Other wound/incision instructi: May shower in 24 hours Contacting the after DC Call your doctor for: If your condition worsens Follow-Up Follow up with: Dr. Lopez in 2 weeks LILIAN LOPEZ MD Aug 22, 2019 12:29
[2019-08-22 13:16] VITALS: BP 164/103
--- NOTE | 2019-08-22 14:16 | RAD ---
Single view of the chest. 08/22/2019 12:35 PM Indication: Port-A-Cath placement Comparison: CT chest July 17, 2019 Findings: There is a left subclavian port with tip at the cavoatrial junction. No pneumothorax or pleural effusion is identified. Lungs are clear. Heart size is normal. No acute osseous changes are seen. IMPRESSION: Left subclavian port with tip to cavoatrial junction Electronically signed by: Kei Montoya MD (08/22/2019 2:12 PM) [id number]
== END 2019-08-22 13:45 | disposition home or self-care (01) ==
LOC: SURG 10:22
PROVIDERS: ATTEND Surgery
DX: Z45.2 Encounter for adjustment and management of vascular access device (principal); C18.9 Malignant neoplasm of colon, unspecified; I10 Essential (primary) hypertension; Z87.891 Personal history of nicotine dependence; K21.9 Gastro-esophageal reflux disease without esophagitis; Z86.010 Personal history of colon polyps; Z90.49 Acquired absence of other specified parts of digestive tract; Z72.89 Other problems related to lifestyle
CPT/HCPCS: 36561; 71045; 77001; A7015; C1788; J0690; J1100; J1642; J1644; J2405; J3010; J3490; 36556

== ENCOUNTER → 2019-10-04 | Outpatient (CLI) | payer BC ==
[~2019-10-04] MED LIST changes: -ACETAMINOPHEN 500 MG TABLET PO ONE; -HYDROmorphone 2 MG/ML VIAL IV PRN; -IV RINGERS,LACTATED 1000ML 1,000 ML IV SCH; -MORPHINE SULFATE 2 MG/ML VIAL. IV PRN; -ONDANSETRON PF 4 MG/2 ML VIAL. IV PRN; -PROCHLORPERAZINE 10 MG/2 ML VIAL. IV PRN; -ceFAZolin SODIUM IV Push 1 GM VIAL. IVP SCH; -fentaNYL PF VIAL 100 MCG/2 ML VIAL IV PRN
--- NOTE | 2019-10-04 15:37 | RAD ---
Left upper extremity venous duplex Doppler ultrasound HISTORY: Left upper extremity swelling. FINDINGS: There is occlusive DVT of the left subclavian vein and axillary vein with extension into the basilic vein. No DVT of the brachial veins, radial vein or ulnar vein. 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 Extension of the subclavian vein clot into the chest at the brachiocephalic vein or superior vena cava is not excluded on this study. FOR INTERNAL CODING PURPOSES Critical result: Critical results called to FAHAD GOMEZ at 10/04/2019 3:22 PM. Additionally prior to this call report, the coat joiner also stated that they called the nurse practitioner with these results RESULT CODE: (C) Electronically signed by: Shaggy Browne MD (10/04/2019 3:34 PM) [id number]
== END ==
LOC: US 14:34
PROVIDERS: ATTEND Nurse Practitioner Adult Health
DX: I82.B12 Acute embolism and thrombosis of left subclavian vein (principal); M79.89 Other specified soft tissue disorders
CPT/HCPCS: 93971

== ENCOUNTER → 2019-11-27 | Outpatient (CLI) | payer BC ==
[~2019-11-27] MED LIST changes: +IOHEXOL 240 MG/ML 50ML VIAL. PO ONE; +IOHEXOL 300 MG/ML 100ML VIAL. IV ONE
--- NOTE | 2019-11-27 14:43 | RAD ---
CT scan of the chest, abdomen and pelvis with contrast 11/27/2019 CLINICAL HISTORY: Metastatic colorectal cancer. TECHNIQUE: After the oral and intravenous administration of contrast, contiguous 5 mm axial sections were obtained through the chest, abdomen and pelvis. 75 cc of Omnipaque 300 were administered intravenously during this examination. One or more of the following individualized dose reduction techniques were utilized for this study: 1. Automated exposure control. 2. Adjustment of the mA and/or kV according to patient size. 3. Use of iterative reconstruction technique. FINDINGS: Comparison study is dated 07/17/2019. A left internal jugular [id number]-j-[id number] type catheter has been placed. The tip of this catheter extends to the superior vena cava. The thoracic aorta is mildly tortuous but tapers normally. The heart is normal in size. No hilar, mediastinal or axillary lymphadenopathy is noted. Minimal dependent subsegmental atelectasis is seen involving both lungs. No pulmonary mass or significant nodule is seen. No pneumothorax or pleural effusion is noted. 12 mass lesions are seen scattered throughout both lobes of the liver consistent with hepatic metastasis. These measure 6 mm to 9.2 cm in size. These have increased in size and number since the previous study. The largest metastasis, which involves the inferior aspect of the right lobe of the liver, measures 9.2 x 8.2 x 6.8 cm in transverse, craniocaudal and AP dimensions. On the previous examination it measured 7.6 x 7.5 x 6.1 cm in size. The spleen, pancreas, adrenal glands and kidneys are within normal limits. Atherosclerotic calcification of the abdominal aorta and its branches is seen. The abdominal aorta tapers normally. The gallbladder is slightly contracted. No free fluid or free air is seen within the abdomen. The patient is post placement of a colostomy within the left lower quadrant abdomen. There is no evidence of bowel obstruction. No retroperitoneal lymphadenopathy is seen. Images through the pelvis demonstrate the urinary bladder be slightly contracted. Calcifications are seen within the prostate gland. A heterogeneous mass is seen involving the distal sigmoid colon/rectum which measures 11.0 x 3.3 x 4.1 cm craniocaudal, transverse and AP dimensions. This has decreased in size since previous study where it measured 12.3 x 5.7 x 6.0 cm in size. No pelvic or inguinal lymphadenopathy is seen. No free fluid is noted. Mild S-shaped curvature of the thoracic lumbar spine is seen. Degenerative changes are seen involving the thoracic and throughout the lumbar spine along with both hips. IMPRESSION: 1. Interval decrease in size of the mass involving the distal sigmoid colon/rectum. 2. Interval increase in size and number of the hepatic metastasis. 3. There is no CT evidence of metastatic disease involving the chest. Electronically signed by: Krish Lainez MD (11/27/2019 2:39 PM) [id number]
== END | disposition home or self-care (01) ==
LOC: CT 10:53
PROVIDERS: ATTEND Internal Medicine Hematology & Oncology
DX: M47.895 Other spondylosis, thoracolumbar region (principal); C18.8 Malignant neoplasm of overlapping sites of colon; I70.0 Atherosclerosis of aorta; K63.89 Other specified diseases of intestine; M16.0 Bilateral primary osteoarthritis of hip; J98.11 Atelectasis
CPT/HCPCS: 71260; 74177; Q9966; Q9967

== ENCOUNTER → 2020-06-17 | Outpatient (CLI) | payer BC ==
[~2020-06-17] MED LIST changes: +CONTRAST GIVEN. MC PRN
--- NOTE | 2020-06-17 17:17 | KCIC ---
EXAM: CT Abdomen and Pelvis with IV contrast INDICATION: Reason: Malignant neoplasm colon, bloating 3 weeks. / Spl. Instructions: 89mL Omni 300 / History: Resection, g-tube,cholecystotomy, chemo and XRT, Y90 procedure, liver mets TECHNIQUE: Multi-detector row CT images were acquired from the lung bases through the abdomen and pel vis with the use of IV contrast. Sagittal and coronal images were acquired from the transaxial data. All CT scans performed at this facility utilize dose optimization techniques as appropriate to the ex am, including the following: Automated exposure control and adjustment of the mA and/or KV according to patient size (this includes techniques or standardized protocols for targeted exams where dose is indication/reason for exam). IV CONTRAST: Administered ORAL CONTRAST: Administered COMPARISON: Chest abdomen pelvis CT with IV contrast of November 27, 2019 FINDINGS: LOWER CHEST: Unremarkable LIVER: Interval enlargement of numerous lobulated hypodense masses consistent with metastatic deposi ts, some new from the previous exam (such as an 11 mm peripheral hepatic segment 2, image 24 of serie s 2) there is been interval placement of a presumed percutaneous biliary drain or cholecystostomy wit h a balloon at the tip. BILIARY SYSTEM: Gallbladder is less distinct on this exam but likely still present with a cholecystos randy tube in place. Common bile duct measures 10 mm in diameter. PANCREAS: Visualized pancreas is unremarkable. Streak artifact from embolic coils in the distributio n of the gastroduodenal artery limits detailed assessment of the pancreatic head. SPLEEN: Unremarkable ADRENALS: Unremarkable KIDNEYS & URETERS: Mild left hydronephrosis and hydroureter proximally is newly apparent. No radiopa que stones in the urinary tract are seen. BLADDER: Partially collapsed urinary bladder with mild nonspecific diffuse wall thickening. REPRODUCTIVE ORGANS: Nonspecific low density in the seminal vesicles left greater than right is pres ent. This is of uncertain clinical significance but correlation for any signs or symptoms of abscess formation can be pursued if clinically warranted. MRI could assess in greater detail if clinically ap propriate. Prostate gland appears slightly smaller normal in size measuring 2.9 cm in diameter. GASTROINTESTINAL: Surgical changes from previous left hemicolectomy and colostomy are redemonstrated along with a percutaneous gastrostomy tube. There are surgical changes compatible with the previous a ppendectomy. There is gas containing collections in the pelvic floor dorsal to the prostate gland connie t could represent postoperative seromas. Attention on follow-up recommended to exclude abscesses. Administered enteric contrast opacifies several mildly distended small bowel loops but there is taper ing of small bowel towards the proctocolectomy bed near the anterior peritoneal reflection dorsal to the urinary bladder and there are small bowel loops that are not opacified by enteric contrast with s ome intervening intermediate density dilute contrast containing loops, suggesting evidence of an at l east partial small bowel obstruction.. MESENTERY/PERITONEUM/RETROPERITONEUM: Interval development of moderate amount of ascites. No free air . There is some soft tissue thickening in the right rectus abdominis muscles (image 55 of series 2) t hat could reflect site of a previous laparoscopic port access. VASCULAR: Scattered arterial calcifications. LYMPH NODES: Several new nodules in the mesentery/greater omentum (for example on image 45 of series 2 near the colostomy) are suspicious for either metastatic deposits or mesenteric adenopathy. OSSEOUS & SOFT TISSUES: Degenerative changes in the thoracic and lumbar spine. No acute or aggressiv e appearing osseous lesions noted. IMPRESSION: 1. Evidence of disease progression in the liver and mesentery with numerous enlarging and some ne w hepatic metastases, new ascites and peritoneal nodularity, status post placement of a presumed chol ecystostomy tube. 2. Interval postsurgical changes in the abdomen from further bowel resection with soft tissue thicke angel in the right flank that is a presumed laparoscopically port access point, evidence of at least a partial small bowel obstruction, and gas containing fluid collections near the pelvic floor that cou ld represent postoperative seromas or abscesses are not excluded. Correlate clinically. No findings o f bowel perforation. 3. Possible developing left ureteral obstruction, that could be from postoperative scarring. Recommen d clinical correlation and follow-up. Electronically signed by: Elvia Wilburn MD (06/17/2020 5:15 PM) [id number]
== END ==
LOC: KCIC CT 09:58
PROVIDERS: ATTEND Surgery
DX: C18.9 Malignant neoplasm of colon, unspecified (principal); Z90.49 Acquired absence of other specified parts of digestive tract
CPT/HCPCS: 74177; Q9966; Q9967